=== PATIENT | female | born 1995 | race African-American/Black ===

== ENCOUNTER 2018-06-25 20:12 | Emergency (ER) | payer SELFPAY ==
[~2018-06-25] VITALS: Ht 152.4 cm; Wt 78.0 kg
[2018-06-25] MEDS ORDERED: IBUPROFEN 600MG TABLET PO ONE (22:30)
[2018-06-25] MEDS ORDERED: DIPHENHYDRAMINE 25MG CAPSULE PO ONE (22:30)
[2018-06-25 22:31] VITALS: BP 116/70
== END 2018-06-25 22:34 | disposition home or self-care (01) ==
LOC: ER 20:12
DX: S80.861A Insect bite (nonvenomous), right lower leg, initial encounter (principal); S20.462A Insect bite (nonvenomous) of left back wall of thorax, initial encounter; S20.461A Insect bite (nonvenomous) of right back wall of thorax, initial encounter; F17.200 Nicotine dependence, unspecified, uncomplicated; W57.XXXA Bitten or stung by nonvenomous insect and other nonvenomous arthropods, initial encounter; Y93.89 Activity, other specified; Y92.89 Other specified places as the place of occurrence of the external cause
CPT/HCPCS: 81025; 99283; Q0163

== ENCOUNTER 2022-10-19 13:29 | Emergency (ER) | payer MEDICAID, OTHER ==
[~2022-10-19] VITALS: Ht 152.4 cm; Wt 82.0 kg
[2022-10-19 14:14] VITALS: BP 97/58
[2022-10-19] MEDS ORDERED: TAM75 MT (18:59)
== END 2022-10-19 19:21 | disposition home or self-care (01) ==
LOC: ER 13:51
DX: O26.892 Other specified pregnancy related conditions, second trimester (principal); B34.9 Viral infection, unspecified; I49.8 Other specified cardiac arrhythmias; Z3A.25 25 weeks gestation of pregnancy
CPT/HCPCS: 71045; 76805; 81025; 93005; 99285